=== PATIENT | female | born 1995 | race Hispanic/Latino ===

== ENCOUNTER 2025-09-03 22:28 | Emergency (ER) | payer BC, SELFPAY ==
[2025-09-03 22:30] VITALS: BP 125/78
[2025-09-03 22:53] LABS: Hematocrit 36.7 % (37.0-47.0); Hemoglobin 12.2 g/dL (12.0-16.0); Mean Corp Hgb Conc. 33.2 g/dL (33.0-37.0); Mean Corpuscular Volume 84.4 fL (81.0-99.0); Nucleated Red Blood Cells % 0 %; Platelet Count 249 10^3/uL (130-400); Red Cell Dist. Width 13.1 % (11.5-14.5)
[2025-09-03 23:02] LABS: HCG, Serum Qualitative Screen Negative
[2025-09-03 23:08] LABS: ALT (SGPT) 14 U/L (0-35); AST (SGOT) 17 U/L (14-36); Albumin 4.5 g/dl (3.5-5.0); Alkaline Phosphatase 104 U/L (38-126); Blood Urea Nitrogen 19 mg/dl (7-17); Calcium 9.7 mg/dl (8.4-10.2); Carbon Dioxide 22 mmol/L (22-30); Chloride 105 mmol/L (98-107); Glucose 95 mg/dl (70-99); Lipase 157 U/L (23-300); Potassium 4.3 mmol/L (3.5-5.1); Sodium 137 mmol/L (135-145); Total Protein 7.3 g/dl (6.3-8.2); eGFR > 60.00
[2025-09-04 01:35] VITALS: BP 101/61; BMI 19.1
--- NOTE | 2025-09-04 01:37 | EDRN ---
Pt says for last 2 days pt has had pain in her uterus, R side of her abdomen has been swollen and pain increases when she walks. Pt notes a 'bowl' in her belly today. Pt has known hernia and thinks it may be this. Nausea all day, no vomiting. Pt
unable to eat due to nausea. Pt has had hernia x 2 years and says the doctor told her to leave the hernia alone. Pt has not had any problem with hernia before today. No fever/chills/cough, urinary symptoms, cp, sob, diarrhea/constipation.
--- NOTE | 2025-09-04 02:52 | ED.GENMED ---
History of Present Illness
General
Chief Complaint: Abdominal Pain
Source: patient
Exam Limitations: none
Time Seen by Provider: 09/04/25 02:52
Nursing documentation reviewed up to this point in time: agreed with
History of Present Illness
History of Present Illness:
30-year-old female presents to ER today with concerns of abdominal pain that began 2 days ago. She describes the pain as primarily being located on the right side is currently present with nausea. She has not had any vomiting. Patient also
reports a feeling of pressure over where she had a ventral hernia. She reports that it pops in and out. She reports that it has not gotten stuck recently. She indicates that the pain does not radiate to the back. She has no associated urinary
symptoms, no burning with urination. She has been eating and drinking normally. She has no pain in the groin. No sick contacts
Review of Systems
Review of Systems
All Other Systems: ROS reviewed and negative except as documented in HPI and ROS
Phy Exam
Physical Exam
Physical Exam:
General: Patient is well appearing and in no acute distress; non-toxic
Skin: Warm and dry, no rashes or lesions
Head: Normocephalic, atraumatic
Eyes: Sclera non-icteric. EOMs intact.
Cardiac: Regular rate and rhythm, no murmurs
Peripheral Vascular: No lower extremity swelling or edema
Pulm: Normal respiratory effort
Abdomen: abdomen soft, non-distended, RLQ tenderness to palpation
Neuro: CN II-XII intact, no focal neurologic deficits.
Psychiatric: Appropriate mood and affect.
Course
Orders/Labs/Results
Orders:
Orders
09/03/25 22:37
Test Result ONCE
09/03/25 22:39
Complete Blood Count/With Diff Urgent
Comprehensive Metabolic Panel Urgent
HCG, Serum Qualitative Screen Urgent
Lipase Urgent
09/04/25 03:28
CT Abd/pelvis W Iv Cont Urgent
Comment:
Reason For Exam: RLQ pain
0.9% Sodium Chloride 500 ml [Nss] 500 ml IV BOLUS
Ondansetron Injectable [Zofran] 4 mg IV NOW STA
US Pelvis W Transvag Combined Urgent
Comment:
Reason For Exam: right pelvic pain (attn to flow)
Abnormal Lab Results
09/03/25
22:39
Hct 36.7 L %
(37.0-47.0)
Eosinophils % 8.1 H %
(0-6)
BUN 19 H mg/dl
(7-17)
09/03/25 22:39
09/03/25 22:39
Vital Signs
Initial and Last Documented VS:
Initial Vital Signs
Temp Pulse Resp BP Pulse Ox
97.7 F 61 20 125/78 100
09/03/25 22:30 09/03/25 22:30 09/03/25 22:30 09/03/25 22:30 09/03/25 22:30
Last Documented Vital Signs
Temp Pulse Resp BP Pulse Ox
97.7 F 60 14 102/62 98
09/04/25 01:35 09/04/25 06:41 09/04/25 03:54 09/04/25 06:41 09/04/25 06:41
MDM/Problems Addressed
Differential Diagnosis Includes:
ddx include appendicitis, ovarian torsion, nephrolithiasis, ovarian cyst, gastroenteritis, IBS
MDM/Problems Addressed:
30-year-old female presents to ER today with concerns of abdominal pain that began 2 days ago. She describes the pain as primarily being located on the right side is currently present with nausea. On physical exam, she has RLQ tenderness to
palpation no palpable abdominal mass. She is declining medication for pain at this time. Labs reviewed, reassuring, no leukocytosis, CMP unremarkable, CT shows no evidence of appendicitis, ultrasound shows normal ovarian flow but small follicle on
the right. Reviewed findings with patient, patient pain free at this time. Advised patient to follow up with PCP, discussed strict return precautions
*Pulse Oximetry
SaO2: 98
Oxygen Mode of Delivery: Room air
Patient hypoxic: no
*Critical Care Note
Total Time (30-74mins, 75-104mins- exclusive of procedures): Not Applicable
Data Reviewed
Review of Other/Old Records Reveals: Records (no prior ER physician documentation to review, no discharge summaries for review)
Source: patient and records
Patient Management
Escalation/DeEscalation of care consider admission/obs:
admit not indicated, patient stable for discharge
ED Attending Note
-
Portions of this chart may have been created with voice recognition software.� Occasional wrong word or��sound alike� substitutions may have occurred due to the inherent limitations of voice recognition software.
Discharge Plan
Departure
Patient Disposition: Home (Routine Discharge)
Date of Disposition: 09/04/25
Time of Disposition: 06:29
Patient with high blood pressure during this ER visit?: No
Condition: Good
Discharge Problem:
Abdominal pain
Instructions: Ovarian Cyst (DC), Pelvic pain - ED (DC), Abdominal Pain
Prescriptions:
No Action
sertraline 50 mg Tablet
50 mg PO DAILY
Referrals:
UNKNOWN - PT DOES,NOT KNOW [Family Provider]
Activity Restrictions/Additional Instructions:
As discussed, your CAT scan of your abdomen shows no signs of acute abdominal findings, no signs of gallbladder or appendix infection. Your ultrasound shows no signs of ovarian torsion.
As discussed, your blood work is unremarkable.
Please call primary care provider to schedule follow up appointment.
PLEASE RETURN TO THE ER SHOULD YOU DEVELOP ANY ACUTE RETURN OR WORSENING OF YOUR SYMPTOMS, INTRACTABLE NAUSEA VOMITING, FEVERS OR CHILLS, OR ANY OTHER SIGNS OR SYMPTOMS RECENTLY.
Interventions
Interventions:
*General Assessment Last Done: 09/03/25 22:30
*Neglect/Abuse Screening Last Done: 09/03/25 22:30
*ED COVID-19 Vaccine History Last Done: 09/04/25 01:36
*ED Influenza Vaccine History Last Done: 09/04/25 01:36
[facility] Fall Risk Assessment Tool Last Done: 09/04/25 01:35
*Risk Screen - Suicide (C-SSRS) Last Done: 09/03/25 22:30
*Nursing Disposition Last Done: 09/04/25 06:48
GR-Zwgoeg-Zqoybmnjaf Assessment Last Done: 09/04/25 01:45
Discharge Date and Time
Discharge Date/Time: 09/04/25 06:48
Print Language: ITALIAN
[2025-09-04 03:54] VITALS: BP 101/60
[2025-09-04] MEDS: NSS 500 IV (03:58)
[2025-09-04] MEDS: ZOFRAN 4 MG IV (04:00)
[2025-09-04 06:41] VITALS: BP 102/62
== END 2025-09-04 06:48 | disposition home or self-care (01) ==
LOC: EMR 22:28
PROVIDERS: EMERGENCY PHYSICIAN Emergency Medicine
DX: R10.9 Unspecified abdominal pain (principal); R11.0 Nausea; N88.8 Other specified noninflammatory disorders of cervix uteri
CPT/HCPCS: 96374; 96361; 99284; 74177; 76830; 76856; 80053; 83690; 84703; 85025; Q9967